=== PATIENT | male | born 1990 | race Caucasian/White ===

== ENCOUNTER 2022-06-10 22:16 | Emergency (ER) | payer OTHER ==
[2022-06-10 22:33] VITALS: BP 150/90
--- NOTE | 2022-06-10 23:52 | ED Physician Documentation ---
History of Present Illness - Stated complaint Stated Complaint: WEIGHTLOSS, VISION PROBLEMS - Chief complaint Chief Complaint: General - History obtained from History obtained from: Patient - Additonal information Additional information: 31-year-old man presents stating that he has had diarrhea and some "cobwebs" in his vision today In addition to generalized weakness. Also endorses 15 pound weight loss over the past 4 months after treating his cat with worm medicine. Patient is concerned that he himself has worms. Denies blood in stool, vomiting, fever, abdominal pain. Denies urinary symptoms. PD PAST MEDICAL HISTORY - Allergies Allergies/Adverse Reactions: Allergies Allergy/AdvReac Type Severity Reaction Status Date / Time Penicillins Allergy Rash Verified 06/10/22 22:30 PD ED PE NORMAL - Vitals Vital signs reviewed: Yes - General General: Alert and oriented X 3, No acute distress, Well developed/nourished - HEENT HEENT: Atraumatic, PERRL, EOMI - Cardiac Cardiac: RRR - Respiratory Respiratory: No respiratory distress, Clear bilaterally - Abdomen Abdomen: Non tender, Non distended - Derm Derm: Normal color, Warm and dry Results - Vitals Vitals: Vital Signs - 24 hr 06/10/22 22:30 Temperature 36.7 C Heart Rate 76 Respiratory 16 Rate Blood Pressure 150/90 H O2 Saturation 99 Oxygen O2 Source Room air PD Medical Decision Making - ED course ED course: 31-year-old man presents for medical screening exam with nonspecific symptoms. Well-appearing with benign exam. Reassurance provided and stool specimen cup provided. Plan to have him follow-up with primary care provider or walk-in clinic. Return precautions given. Departure - Departure Disposition: 01 Home, Self Care Clinical Impression: Diarrhea, Weight loss Condition: Good Instructions: Diarrhea Comments: You were seen in the emergency department for weakness, diarrhea, and weight loss. Please follow-up with a primary care provider or walk-in clinic. They may consider running stool studies if you can give a fresh sample. Return to the emergency department for new or worsening symptoms or other concerns.
== END 2022-06-11 00:03 | disposition home or self-care (01) ==
LOC: ED 22:16
DX: R19.7 Diarrhea, unspecified (principal); R63.4 Abnormal weight loss
CPT/HCPCS: 99281; 99282